=== PATIENT | male | born 1945 | race Caucasian/White ===

== ENCOUNTER → 2017-07-13 | Outpatient (CLI) | payer MEDICARE, OTHER ==
[~2017-07-13] MED LIST: ASCO-96 PO; ASPI-496 PO; ATOR-2 PO; CHOL20002 PO; KRIL1CAP29 PO; PIOG45TA3 PO; SITA1TAB PO
[2017-07-13 15:23] LABS: BLOOD UREA NITROGEN 20 mg/dL (7-18)
[2017-07-13 15:26] LABS: HEMOGLOBIN 15.6 g/dL (13.7-18.0); WHITE BLOOD COUNT 7.8 x10^3/uL (3.4-10)
[2017-07-13 15:35] LABS: ASPARTATE AMINO TRANSFERASE 32 U/L (15-37)
[2017-07-13 15:39] LABS: HIV 1&2 ANTIBODY SCREEN Nonreactive (Nonreactive); HIV-1 p24 ANTIGEN Nonreactive (Nonreactive)
== END | disposition home or self-care (01) ==
LOC: STAR 14:03
PROVIDERS: ATTEND Orthopaedic Surgery
DX: Z01.818 Encounter for other preprocedural examination (principal); M17.11 Unilateral primary osteoarthritis, right knee; R73.09 Other abnormal glucose; R79.1 Abnormal coagulation profile
CPT/HCPCS: 36415; 80053; 83036; 85025; 85610; 85730; 86703; 87081; 87147; 87899; 93005; G0435

== ENCOUNTER 2017-07-27 09:20 | Inpatient (IN) | payer MEDICARE, OTHER ==
[~2017-07-27] VITALS: Ht 177.8 cm; Wt 102.3 kg
[~2017-07-27 09:20] MED LIST changes: +EPINEPHRINE 1 MG/ML, 1ML ONE; +KETOROLAC 60 MG/2 ML ONE; +ROPIvacaine/PF 0.2%, 20 ML ONE; +SODIUM CHLORIDE 0.9% 50 ML ONE; +TRANEXAMIC ACID 100 MG/ML, 10ML ONE
[2017-07-27] MEDS ORDERED: LACTATED RINGERS 1,000 ML IV SCH (10:07)
[2017-07-27] MEDS ORDERED: OxyconTIN ER 10 MG TAB.ER PO ONE (10:30)
[2017-07-27] MEDS ORDERED: VANCOMYCIN PER PHARMACY MC ONE (10:30)
[2017-07-27] MEDS ORDERED: GABAPENTIN 300 MG CAPSULE PO ONE (10:30)
[2017-07-27] MEDS ORDERED: ACETAMINOPHEN 500 MG TABLET PO ONE (10:30)
[2017-07-27] MEDS ORDERED: PROPOFOL 50 ML ONE ×2 (10:38→13:04)
[2017-07-27] MEDS ORDERED: OxyconTIN ER 10 MG TAB.ER ONE (10:38)
[2017-07-27] MEDS ORDERED: MIDAZOLAM 1 MG/ML, 2ML ONE (10:38)
[2017-07-27] MEDS ORDERED: ACETAMINOPHEN 500 MG TABLET ONE (10:38)
[2017-07-27] MEDS ORDERED: ONDANSETRON 2MG/ML, 2ML ONE (10:39)
[2017-07-27] MEDS ORDERED: FENTANYL PF 100 MCG/2ML ONE (10:39)
[2017-07-27] MEDS ORDERED: LIDOCAINE-MPF 2% ,5ML ONE (10:39)
[2017-07-27] MEDS ORDERED: CEFAZOLIN 1,000 MG ONE (10:39)
[2017-07-27] MEDS ORDERED: PROPOFOL 10 MG/ML, 20ML ONE ×2 (10:39→13:56)
[2017-07-27] MEDS ORDERED: BUPIVACAINE/PF 0.25% ONE (10:39)
[2017-07-27] MEDS ORDERED: GABAPENTIN 300 MG CAPSULE ONE (10:39)
[2017-07-27] MEDS ORDERED: DEXAMETHASONE 4 MG/ML, 1ML ONE (10:39)
[2017-07-27 10:50] VITALS: BP 153/77
[2017-07-27] MEDS ORDERED: VANCOMYCIN 1,500 MG in SODIUM CHLORIDE 0.9% 250 ML IV ONE (11:30)
[2017-07-27] MEDS ORDERED: LABETALOL 5MG/ML, 20ML IV PRN (13:00)
[2017-07-27] MEDS ORDERED: OXYcodone 5 MG/5 ML ORAL.SOL UDC PO PRN (13:00)
[2017-07-27] MEDS ORDERED: DIAZEPAM 5 MG/ML, 2ML IVPush PRN (13:00)
[2017-07-27] MEDS ORDERED: FENTANYL PF 100 MCG/2ML IV PRN (13:00)
[2017-07-27] MEDS ORDERED: MEPERIDINE/PF 25MG/0.5ML IVPush PRN (13:00)
[2017-07-27] MEDS ORDERED: hydrALAzine 20 MG/ML, 1ML IV PRN (13:00)
[2017-07-27] MEDS ORDERED: ONDANSETRON 2MG/ML, 2ML IVPush PRN (13:00)
[2017-07-27] MEDS ORDERED: PROMETHAZINE 25 MG/ML, 1ML IV PRN (13:00)
[2017-07-27] MEDS ORDERED: HYDROmorphone 1 MG/ML, 1ML IV PRN ×2 (13:00→14:30)
[2017-07-27] MEDS ORDERED: MIDAZOLAM 1 MG/ML, 2ML IV PRN (13:00)
[2017-07-27] MEDS ORDERED: ALBUTEROL/IPRATROPIUM 2.5MG/0.5MG, 3 ML NPPB PRN (13:00)
[2017-07-27] MEDS: NS + 20MEQ KCL 1,000 ML IV SCH (14:25)
[2017-07-27] MEDS ORDERED: GLUCAGON 1 MG IM PRN (14:30)
[2017-07-27] MEDS ORDERED: BISACODYL 10 MG SUPP PR PRN (14:30)
[2017-07-27] MEDS ORDERED: DEXTROSE 4 GM TAB.CHEW PO PRN (14:30)
[2017-07-27] MEDS ORDERED: DIAZEPAM 5 MG TABLET PO PRN (14:30)
[2017-07-27] MEDS ORDERED: SENNA/DOCUSATE TABLET PO PRN (14:30)
[2017-07-27] MEDS ORDERED: ACETAMINOPHEN 650 MG/20.3 ML UDC PO PRN (14:30)
[2017-07-27] MEDS ORDERED: ONDANSETRON 4 MG TABLET PO PRN (14:30)
[2017-07-27] MEDS ORDERED: ONDANSETRON 2MG/ML, 2ML IV PRN (14:30)
[2017-07-27] MEDS ORDERED: MAGNESIUM HYDROXIDE 8%, 30ML UDC PO PRN (14:30)
[2017-07-27] MEDS ORDERED: ALUMINUM/MAG/SIMETHICONE 30 ML UDC PO PRN (14:30)
[2017-07-27] MEDS ORDERED: DIPHENHYDRAMINE 50 MG CAPSULE PO PRN (14:30)
[2017-07-27] MEDS ORDERED: ACETAMINOPHEN 650 MG/20.3 ML UDC ONE (14:48)
[2017-07-27] MEDS ORDERED: OXYcodone 5 MG/5 ML ORAL.SOL UDC ONE ×2 (14:48→14:50)
[2017-07-27] MEDS ORDERED: TRANEXAMIC ACID 1,000 MG in SODIUM CHLORIDE 0.9% 100 ML IVPB ONE (15:15)
[2017-07-27] MEDS: INSULIN REGULAR 100 UNITS/ML, 3ML VIAL SQ-INSULIN SCH ×2 (16:00→21:00)
[2017-07-27 19:49] VITALS: BP 137/77
[2017-07-27] MEDS: CEFAZOLIN PMX 1GM/50ML 50 ML IVPB SCH (20:20)
[2017-07-27] MEDS ORDERED: ATORVASTATIN 80 MG TABLET PO SCH (21:00)
[2017-07-27] MEDS: SITAGLIPTIN 50MG TABLET PO SCH (22:25)
[2017-07-27] MEDS: SODIUM CHLORIDE FLUSH 10ML SYR IVF SCH (22:25)
[2017-07-27] MEDS: DOCUSATE 100 MG CAPSULE PO SCH (22:25)
[2017-07-27] MEDS: metFORMIN 500 MG TABLET PO SCH (22:25)
[2017-07-27] MEDS ORDERED: VANCOMYCIN PMX 1GM/200ML 200 ML IVPB ONE (23:00)
[2017-07-27] MEDS: OXYcodone IR 5MG TABLET PO PRN (23:19)
[2017-07-28] MEDS: NS + 20MEQ KCL 1,000 ML IV SCH ×2 (00:25→09:16)
[2017-07-28 00:34] VITALS: BP 121/69
[2017-07-28 04:18] VITALS: BP 103/54
[2017-07-28] MEDS: CEFAZOLIN PMX 1GM/50ML 50 ML IVPB SCH (04:21)
[2017-07-28 05:38] LABS: HEMATOCRIT 42.9 % (39.2-51.8); HEMOGLOBIN 14.5 g/dL (13.7-18.0)
[2017-07-28] MEDS ORDERED: DEXAMETHASONE 4 MG/ML, 1ML IVPush SCH (06:00)
[2017-07-28] MEDS: OXYcodone IR 5MG TABLET PO PRN (06:09)
[2017-07-28 06:55] VITALS: BP 110/59
[2017-07-28] MEDS: INSULIN REGULAR 100 UNITS/ML, 3ML VIAL SQ-INSULIN SCH ×2 (07:00→11:00)
[2017-07-28] MEDS ORDERED: CHOLECALCIFEROL 1,000 UNIT TABLET PO SCH (09:00)
[2017-07-28] MEDS: SODIUM CHLORIDE FLUSH 10ML SYR IVF SCH (09:00)
[2017-07-28] MEDS ORDERED: TAMSULOSIN 0.4 MG CAP.ER.24H PO SCH (09:00)
[2017-07-28] MEDS ORDERED: PIOGLITAZONE 15 MG TABLET PO SCH (09:00)
[2017-07-28] MEDS: SITAGLIPTIN 50MG TABLET PO SCH (09:21)
[2017-07-28] MEDS: DOCUSATE 100 MG CAPSULE PO SCH (09:21)
[2017-07-28] MEDS: metFORMIN 500 MG TABLET PO SCH (09:22)
[2017-07-28] MEDS ORDERED: ONDA4TAB10 PO (10:57)
[2017-07-28] MEDS ORDERED: DOCU-131 PO (10:57)
[2017-07-28] MEDS ORDERED: ASPI-496 PO (10:57)
[2017-07-28] MEDS ORDERED: CELE200C PO (10:58)
[2017-07-28] MEDS ORDERED: TRAM50TA2 PO (10:58)
[2017-07-28] MEDS ORDERED: DIAZ5TAB PO (10:59)
[2017-07-28] MEDS ORDERED: OXYC5CAP2 PO (11:00)
[2017-07-28 11:51] VITALS: BP 115/67
[2017-07-28] MEDS ORDERED: KETOROLAC 30 MG/1 ML IV SCH (14:30)
[2017-07-28] MEDS ORDERED: ASPIRIN 81 MG TABLET EC PO SCH (18:00)
== END 2017-07-28 11:57 | disposition home or self-care (01) | DRG 470 ==
LOC: ORIP 09:20 → 4NOR 15:54
PROVIDERS: ADMIT Orthopaedic Surgery; ATTEND Orthopaedic Surgery
PROC: 0SRC069 Replacement of Right Knee Joint with Oxidized Zirconium on Polyethylene Synthetic Substitute, Cemented, Open Approach (ICD-10-PCS; principal; 2017-07-27 11:45)
DX: M17.11 Unilateral primary osteoarthritis, right knee (principal); E11.9 Type 2 diabetes mellitus without complications
CPT/HCPCS: 36415; 82962; 85014; 85018; C1713; J0171; J0690; J1100; J1815; J1885; J2250; J2405; J2704; J2795; J3010; J3370; J3480; J3490; C1776; J7050; J7120